=== PATIENT | female | born 1970 | race Caucasian/White ===

== ENCOUNTER → 2016-07-21 | Outpatient (CLI) | payer BC ==
[~2016-07-21] MED LIST: ADVIN25/60 INH; BND25X PO; IBUP-103 PO
== END | disposition home or self-care (01) ==
LOC: C.LAB1850 13:47
PROVIDERS: ATTEND Obstetrics & Gynecology
DX: N91.2 Amenorrhea, unspecified (principal)

== ENCOUNTER → 2016-11-06 | Outpatient (CLI) | payer BC ==
[2016-11-06 18:09] LABS: BASO % 1.4 %; BASO ABS # 0.08 K/uL (0-0.2); COMPLETE YES; EOS % 2.3 %; HEMATOCRIT 44.4 % (37-47); IG% 0.2 %; LYMPH % 33.5 %; LYMPH ABS # 1.86 K/uL (1.2-3.4); MEAN CELL VOLUME 100.5 fL (80-100); MEAN CORPUSCULAR HEMOGLOBIN 32.8 pg (25-34); MEAN CORPUSCULAR HGB CONC 32.7 g/dl (32-36); NEUT % 55.6 %; PLATELET COUNT 338 K/uL (130-400); RED BLOOD COUNT 4.42 M/uL (4.2-5.4); WHITE BLOOD COUNT 5.55 K/uL (4.8-10.8)
[2016-11-06 18:18] LABS: ALT/SGPT 30 U/L (12-78); AST/SGOT 17 U/L (15-37); BLOOD UREA NITROGEN 12 mg/dl (7-18); BUN/CREATININE RATIO 15.2 (10-20); CALCIUM 8.5 mg/dl (8.5-10.1); CARBON DIOXIDE 26 mmol/L (21-32); CHLORIDE 107 mmol/L (98-107); CREATININE 0.79 mg/dl (0.60-1.20); GLUCOSE 81 mg/dl (70-99); SODIUM 140 mmol/L (136-145)
[2016-11-06 18:29] LABS: ALB/GLOB RATIO 1.2 (0.9-2); ALKALINE PHOSPHATASE 61 U/L (45-117)
[2016-11-08 15:29] LABS: MICROSOMAL AB <1 IU/ML (<9)
== END | disposition home or self-care (01) ==
LOC: C.LABBFT 11:46
PROVIDERS: ATTEND Nurse Practitioner
DX: R63.4 Abnormal weight loss (principal)

== ENCOUNTER → 2017-05-27 | Outpatient (CLI) | payer BC ==
--- NOTE | 2017-05-27 15:21 | MAMMOGRAPHY REPORT ---
UNILATERAL RIGHT DIGITAL DIAGNOSTIC MAMMOGRAM TOMOSYNTHESIS AND TARGETED RIGHT ULTRASOUND: 05/27/2017 CLINICAL HISTORY: Callback from screening mammogram for right breast asymmetry. TECHNIQUE: Breast tomosynthesis in addition to standard 2D mammography was performed. Spot compress ion right CC 2-D and tomosynthesis images and full-field right CC tomosynthesis images including C vi ews were obtained. COMPARISON: Comparison is made to exams dated: 05/18/2017 mammogram, 05/16/2016 mammogram, 05/15/2015 m ammogram, 05/12/2014 mammogram, 10/19/2013 ultrasound, and 10/19/2013 mammogram - [facility] C enter. BREAST COMPOSITION: The tissue of the right breast is extremely dense, which lowers the sensitivity of mammography. FINDINGS: The previously described asymmetry within the right medial breast effaces to a baseline lidia earance on the additional images. Normal fibroglandular tissue is seen in this region on the additio nal images, without evidence of a suspicious mass or architectural distortion noted. Targeted ultrasound was performed of the right medial breast in the region of the mammographic asymme try seen on one view only. The breast tissue is markedly heterogeneous on ultrasound with multiple a reas of shadowing seen, which reduces the sensitivity of the exam. However, there are no suspicious masses or other suspicious sonographic abnormalities evident. A few anechoic benign simple cysts wer e seen during the exam, including 2 adjacent 3 mm cysts in the right 2:00 periareolar breast and a 6 mm anechoic benign cyst in the right 4:00 breast, 3 cm from the nipple. IMPRESSION: ACR BI-RADS CATEGORY 2: BENIGN, TARGETED ULTRASOUND ACR BI-RADS CATEGORY 2: BENIGN The right breast asymmetry effaces on the additional views, without corresponding suspicious sonograp hic abnormality evident. The asymmetry is benign and compatible with normal fibroglandular tissue. There is no mammographic or targeted sonographic evidence of malignancy. A 1 year screening mammogram is recommended. The patient has been verbally notified of the results. Approximately 10% of breast cancers are not detected with mammography. A negative mammographic report should not delay biopsy if a clinically suggestive mass is present. Liyah Izaguirre M.D. ah/:05/27/2017 14:05:47 [employer]: Tran STEWART(Markell)(M), [facility] letter sent: Normal 1/2 BI-RADS Code: ACR BI-RADS Category 2: Benign Ultrasound BI-RADS: ACR BI-RADS Category 2: Benign
== END | disposition home or self-care (01) ==
LOC: C.MAMM 13:40
PROVIDERS: ATTEND Obstetrics & Gynecology
DX: N64.9 Disorder of breast, unspecified (principal)